=== PATIENT | male | born 1980 ===

== ENCOUNTER 2022-01-10 14:57 | Outpatient (REF) | payer BC, SELFPAY ==
[2022-01-10 20:04] LABS: HCT 52.1 % (40.0-50.0); HGB 16.9 g/dL (13.5-17.5); MCH 25.4 pg (27.0-33.0); MCHC 32.4 % (32.0-36.0); MCV 78 fL (80-95); MPV 10.5 fL (8.0-11.0); Platelet Count 198 10^3/uL (130-400); RDW 13.3 % (11.8-14.1); WBC 7.37 10^3/uL (4.4-10.8)
[2022-01-10 20:26] LABS: ALT 88 U/L (16-63); AST 63 U/L (15-37); Albumin 4.6 g/dL (3.4-5.0); Alkaline Phosphatase 106 U/L (46-116); Anion Gap 11.2 mmol/L (3-11); BUN 11 mg/dL (7-18); Bilirubin, Total 0.6 mg/dL (0.2-1.0); CO2 28.8 mmol/L (21.0-32.0); CREATININE 0.8 mg/dL (0.70-1.30); Calcium 9.5 mg/dL (8.5-10.1); Calculated LDL 180 mg/dL (<100); Chloride 101 mmol/L (98-107); Cholesterol 237 mg/dL (<200); Estimated GFR 114.74 (mL/min/1.73m2); Glucose 149 mg/dL (74-106); HDL Cholesterol 36 mg/dL (40-60); Sodium 141 mmol/L (136-145); Total Protein 8.9 g/dL (6.4-8.2); Triglyceride 106 mg/dL (<150)
[2022-01-10 20:36] LABS: RBC 6.65 10^6/uL (4.36-5.78)
[2022-01-10 21:05] LABS: Hemoglobin A1C 10.5 % (<5.7)
== END 2022-01-10 14:58 | disposition home or self-care (01) ==
LOC: NCHCN 14:57
PROVIDERS: Visit Provider Nurse Practitioner Family
DX: I10 Essential (primary) hypertension (principal); E66.9 Obesity, unspecified; R73.9 Hyperglycemia, unspecified
CPT/HCPCS: 80053; 80061; 85027; 83036; 85007

== ENCOUNTER 2022-04-09 03:08 | Outpatient (CLI) | payer BC, SELFPAY ==
[2022-04-09 07:42] LABS: ALT 41 U/L (16-63); AST 22 U/L (15-37); Alkaline Phosphatase 125 U/L (46-116); Anion Gap 11.4 mmol/L (3-11); BUN 21 mg/dL (7-18); Bilirubin, Total 0.5 mg/dL (0.2-1.0); CO2 27.6 mmol/L (21.0-32.0); CREATININE 0.8 mg/dL (0.70-1.30); Calculated LDL 109 mg/dL (<100); Chloride 98 mmol/L (98-107); Cholesterol 173 mg/dL (<200); Estimated GFR 114.74 (mL/min/1.73m2); Glucose 214 mg/dL (74-106); HDL Cholesterol 38 mg/dL (40-60); Potassium 3.6 mmol/L (3.5-5.1); Sodium 137 mmol/L (136-145); Total Protein 8.5 g/dL (6.4-8.2); Triglyceride 133 mg/dL (<150)
== END 2022-04-09 03:09 | disposition home or self-care (01) ==
LOC: LBO 03:08
PROVIDERS: Absent Provider Family Medicine; PCP Family Medicine; Referring Provider Family Medicine; Visit Provider Family Medicine
DX: E78.5 Hyperlipidemia, unspecified (principal); E11.9 Type 2 diabetes mellitus without complications
CPT/HCPCS: 36415; 80053; 80061